=== PATIENT | male | born 1990 | race Caucasian/White ===

== ENCOUNTER → 2017-02-25 | Outpatient (CLI) | payer OTHER ==
[~2017-02-25] MED LIST: AMPH20TA2 PO; BENZ1CAP90 PO; BSP/10 PO; BUPR100T5 PO; BUPR100T8 PO; BUSP-8 PO; HYDR-5688 PO; IBUP-1050 PO; NICO21DI4 TD; PENI500T2 PO; PRED20TA2 PO; PSEU30TA20 PO; TRAZ100T29 PO
== END | disposition home or self-care (01) ==
LOC: C.LAB 20:19
DX: Z02.83 Encounter for blood-alcohol and blood-drug test (principal)

== ENCOUNTER 2017-05-04 10:45 | Emergency (ER) | payer SELFPAY ==
[~2017-05-04] VITALS: Ht 180.3 cm; Wt 77.3 kg
[~2017-05-04 10:45] MED LIST changes: -AMPH20TA2 PO; -BENZ1CAP90 PO; -BUPR100T8 PO; -BUSP-8 PO; -HYDR-5688 PO; -NICO21DI4 TD; -PENI500T2 PO; -PRED20TA2 PO
[2017-05-04 11:00] VITALS: TEMP 36.5; Ht 180.3 cm; Wt 77.3 kg
[2017-05-04] MEDS ORDERED: HYDR-5688 PO (11:48)
[2017-05-04] MEDS ORDERED: PENI500T2 PO (11:48)
[2017-05-04 11:50] VITALS: BP 122/74; PULSE 64; O2SAT 100
--- NOTE | 2017-05-04 20:28 | EMERGENCY ROOM VISIT NOTE ---
ED Visit Note First contact with patient: 11:40 CHIEF COMPLAINT: Dental pain.. HISTORY OF PRESENT ILLNESS: Mr. Zacarias is a 26-year-old white male who ambulates into the ED complaining of left mandibular dental pain. He reports 4 days ago he was chewing food and broke a portion of tooth #19. Since that time he has had progressive dental pain for hours over the left mandible that is radiating into towards the left ear. He describes the discomfort as a constant deep achy sensation with occasional episode of sharp discomfort primarily with palpation and chewing. He rates his discomfort 8/10. He reports he has been taking ibuprofen which initially was helping his discomfort but he has had no relief in the last 24 hours. He denies any associated symptoms including fevers, chills, sweats, skin eruptions, skin color changes, facial swelling/redness, difficulty swallowing, hearing changes, year drainage, headache. REVIEW OF SYSTEMS: As noted above in History of Present Illness. 8 body systems were reviewed with this patient and found to be negative unless noted above otherwise. PMH: Patient denies.. CURRENT MEDICATION: Buspirone, ibuprofen and pseudoephedrine. ALLERGIES TO MEDICATION: Patient denies. SOCIAL HISTORY: Patient is currently employed; he feels safe in his home environment; he admits to tobacco use and denies alcohol use. PHYSICAL EXAM: Vital Signs: Date Time Temp Pulse Resp B/P (MAP) Pulse Ox O2 Delivery O2 Flow Rate FiO2 05/04/17 11:50 64 16 122/74 100 05/04/17 11:00 36.5 64 20 124/80 99 Room Air General: 26 year-old white male in moderate distress due to pain, nontoxic appearing, afebrile and hemodynamically stable. Neurological: Awake, alert and oriented to person, place and time. Answering questions appropriately and following commands. Normal gait. Good hand eye coordination. No focal motor or sensory deficits. Skin: Warm, dry and pink. No soft tissue lesions, rashes, or trauma noted. HEENT: Atraumatic and normocephalic. No focal swelling or erythema. Airway is patent. Patient has multiple decaying teeth. Tooth #19 shows a fracture and absence of the anterior quarter portion of the buccal of the tooth. There is exposure of the inner portion of the tooth which once again is decayed was not appreciate any dentine or nerve exposure. Over the local gingiva there is mild erythema and mild edema. I do not appreciate any palpable abscesses. There is no local lymphadenopathy. Additionally the airway was patent and there was no posterior pharyngeal erythema or edema. ED COURSE: Patient is assessed as noted above. Patient is educated about his findings and instructed on his treatment plan; he verbalizes understanding and agreement with this plan. CLINIC IMPRESSION: Dental pain. Fracture tooth #19. DISPOSITION: Patient discharged home in stable condition; prior to departure he was reassessed and subjectively reported he was feeling better. PLAN: Comfort measures were discussed including a sliding pain scale of ibuprofen, acetaminophen and [place]. State database was checked and no red flags were observed. He was given the standard precautions for narcotic use. Additionally patient was encouraged to keep the area covered with dental wax and to avoid tobacco use and uses a mechanical soft diet. Patient was prescribed Pen-Vee K and instructed on its use. Patient was encouraged to keep his upcoming appointment with dentistry for definitive care and treatment. Patient was encouraged to return the ED for fevers, chills, sweats, facial swelling, uncontrolled pain or any new/concerning symptoms.
[2017-08-11] MEDS ORDERED: BUPR100T8 PO (09:06)
[2017-08-11] MEDS ORDERED: NICO21DI4 TD (09:06)
[2017-08-11] MEDS ORDERED: BUSP-8 PO (09:06)
== END 2017-05-04 11:50 | disposition home or self-care (01) ==
LOC: C.EDB 10:46 → C.EDD 11:50
DX: K08.89 Other specified disorders of teeth and supporting structures (principal); S02.5XXA Fracture of tooth (traumatic), initial encounter for closed fracture; W22.8XXA Striking against or struck by other objects, initial encounter; Y93.89 Activity, other specified; Y99.8 Other external cause status; Z72.0 Tobacco use

== ENCOUNTER 2017-06-28 20:43 | Emergency (ER) | payer OTHER ==
[~2017-06-28] VITALS: Ht 180.3 cm; Wt 73.0 kg
[~2017-06-28 20:43] MED LIST changes: +HYDR-5688 PO; -TRAZ100T29 PO
[2017-06-28 20:45] VITALS: Ht 180.3 cm; Wt 73.0 kg
[2017-06-28] MEDS ORDERED: ONDANSETRON INJ 2 MG/ML 2 ML VIAL IV STA (20:56)
[2017-06-28] MEDS ORDERED: FENTANYL CITRATE INJ 50 MCG/1 ML 2 ML VIAL IV STA (20:56)
[2017-06-28] MEDS ORDERED: SODIUM CHLORIDE 0.9% 1000ML 1,000 ML IV STA (20:56)
[2017-06-28] MEDS ORDERED: OPTIRAY 320 IV PRN (21:00)
[2017-06-28 21:17] LABS: BASO % 0.3 %; BASO ABS # 0.03 K/uL (0-0.2); COMPLETE YES; HEMATOCRIT 42.1 % (42-52); IG% 0.2 %; LYMPH % 23.7 %; LYMPH ABS # 2.24 K/uL (1.2-3.4); MEAN CELL VOLUME 81.7 fL (80-100); MEAN CORPUSCULAR HEMOGLOBIN 27.8 pg (25-34); MEAN PLATELET VOLUME 9.2 fL (7.4-10.4); NEUT % 66.8 %; PLATELET COUNT 220 K/uL (130-400); RED BLOOD COUNT 5.15 M/uL (4.7-6.1); WHITE BLOOD COUNT 9.47 K/uL (4.8-10.8)
[2017-06-28 21:26] LABS: ISTAT CREATININE 1.2 mg/dl (0.6-1.3); ISTAT HEMOGLOBIN 14.3 g/dl (14.0-18.0); ISTAT IONIZED CALCIUM 1.14 mmol/l (1.12-1.32)
[2017-06-28 21:39] LABS: BUN/CREATININE RATIO 12.7 (10-20); CALCIUM 8.5 mg/dl (8.5-10.1); CREATININE 1.3 mg/dl (0.60-1.40); POTASSIUM 3.3 mmol/L (3.5-5.1)
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
[2017-06-28 22:14] LABS: MANUAL MICROSCOPIC REQUIRED? NO; REVIEW REQ? NO; URINE APPEARANCE CLEAR (CLEAR); URINE BILIRUBIN NEG (NEG); URINE COLOR YELLOW; URINE NITRITE NEG (NEG); URINE PH 6.5 (4.5-7.5); URINE SPECIFIC GRAVITY 1.034 (1.000-1.030); UROBILINOGEN NEG (NEG); ZZUR CULT IF INDIC CLEAN CATCH NO
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
[2017-06-28 22:33] VITALS: BP 131/82; PULSE 63; TEMP 36.6; O2SAT 99
[2017-08-11] MEDS ORDERED: BUPR100T8 PO (09:06)
[2017-08-11] MEDS ORDERED: NICO21DI4 TD (09:06)
[2017-08-11] MEDS ORDERED: BUSP-8 PO (09:06)
== END 2017-06-28 22:34 | disposition home or self-care (01) ==
LOC: C.EDB 20:44 → C.EDA 22:34
DX: S09.90XA Unspecified injury of head, initial encounter (principal); R51 Headache; M54.2 Cervicalgia; R07.9 Chest pain, unspecified; V87.2XXA Person injured in collision between car and pick-up truck or van (traffic), initial encounter; Y92.410 Unspecified street and highway as the place of occurrence of the external cause; F17.210 Nicotine dependence, cigarettes, uncomplicated

== ENCOUNTER 2017-08-08 09:36 | Inpatient (IN) | payer OTHER ==
[~2017-08-08] VITALS: Ht 180.3 cm; Wt 68.9 kg
[2017-08-08] MEDS ORDERED: BUSP-8 PO (10:26)
[2017-08-08] MEDS ORDERED: BUPR100T8 PO (10:26)
[2017-08-08] MEDS ORDERED: AMPH20TA2 PO (10:26)
[2017-08-08 10:42] LABS: URINE APPEARANCE CLEAR (CLEAR); URINE BILIRUBIN NEG (NEG); URINE COLOR YELLOW; URINE NITRITE NEG (NEG); URINE PH 6.5 (4.5-7.5); URINE SPECIFIC GRAVITY 1.022 (1.000-1.030); UROBILINOGEN NEG (NEG)
[2017-08-08 10:43] LABS: MANUAL MICROSCOPIC REQUIRED? NO; REVIEW REQ? NO
[2017-08-08 11:04] LABS: BASO % 0.6 %; BASO ABS # 0.05 K/uL (0-0.2); COMPLETE YES; HEMATOCRIT 46.6 % (42-52); IG% 0.4 %; LYMPH % 31.3 %; LYMPH ABS # 2.45 K/uL (1.2-3.4); MEAN CELL VOLUME 79.8 fL (80-100); MEAN CORPUSCULAR HEMOGLOBIN 27.1 pg (25-34); MEAN CORPUSCULAR HGB CONC 33.9 g/dl (32-36); MEAN PLATELET VOLUME 9.3 fL (7.4-10.4); MONO % 7.5 %; NEUT % 59.2 %; PLATELET COUNT 229 K/uL (130-400); RED BLOOD COUNT 5.84 M/uL (4.7-6.1); WHITE BLOOD COUNT 7.84 K/uL (4.8-10.8)
[2017-08-08 11:29] LABS: BENZODIAZEPINE, URINE NEG (NEG); COCAINE,URINE NEG (NEG); PHENCYCLIDINE, URINE NEG (NEG)
[2017-08-08 11:30] LABS: BUN/CREATININE RATIO 16.8 (10-20); CALCIUM 8.7 mg/dl (8.5-10.1); CREATININE 1.1 mg/dl (0.60-1.40); POTASSIUM 3.6 mmol/L (3.5-5.1)
[2017-08-08 11:40] LABS: ALB/GLOB RATIO 1.3 (0.9-2); THYROID STIMULATING HORMONE 1.11 uIu/ml (0.300-4.500)
[2017-08-08] MEDS ORDERED: DIAZEPAM 5MG TAB PO ONE (11:45)
--- NOTE | 2017-08-08 14:04 | EMERGENCY ROOM VISIT NOTE ---
History Report prepared by Raheem: Jennifer Nicole Under the Supervision of: Dr. Caleb Parks M.D. First contact with patient: 09:49 Chief Complaint: MENTAL HEALTH EVALUATION Stated Complaint: THOUGHTS OF SUICIDAL History of Present Illness The patient is a 26 year old male who presents to the Emergency Room with complaints of persistent suicidal thoughts starting yesterday. The patient has a history of anxiety since he was younger. He has had multiple inpatient psychiatric hospitalizations previously. He changed his job a couple months ago and lost his insurance. He was no longer able to afford his medications. He was on Adderall, BuSpar, and Wellbutrin. He has not been able to take his medications for the past months. He has been self medicating with marijuana, but was recently told to stop by his police officer. For the past couple of days , he has been using alcohol. He has been drinking beer and some liquor. He states that he has had a 12 pack of beer. He has not used alcohol or other drugs since yesterday. Yesterday, he started having thoughts of harming himself. He does not have a plan. He has not tried harming himself in the past. He feels anxious and reports having heart palpitations, chills, SOB, and chest pain. He denies fever, cough, congestion, nausea, vomiting, back pain, abdominal pain, or diarrhea. He has not been hospitalized for alcohol withdrawal before. Source of History: patient Onset: yesterday Position: other (mental health) Quality: other (suicidal thoughts) Timing: other (persistent) Associated Symptoms: + chills, + chest pain, + SOB, No fevers, No cough, No nausea, No vomiting, No diarrhea Note: Pt anxiety, heart palpitations. Pt denies congestion. Review of Systems See HPI for pertinent positives and negatives. A total of ten systems were reviewed and were otherwise negative. Past Medical & Surgical Medical Problems: (1) Anxiety (2) Depression (3) Hemorrhoids Family History Diabetes mellitus Heart disease Hypertension Social History Smoking Status: Current Every Day Smoker Alcohol Use: occasionally Marital Status: in relationship Housing Status: lives with significant other Occupation Status: employed Current/Historical Medications Scheduled Amphetamine-Dextroamphetamine 20MG (Adderall 20MG), 20 MG PO BID Bupropion (Wellbutrin Sr), 100 MG PO BID Buspirone Hcl (Buspirone Hcl), 10 MG PO BID Allergies Coded Allergies: No Known Allergies (Unverified , 05/04/17) Physical Exam Vital Signs Date Time Temp Pulse Resp B/P (MAP) Pulse Ox O2 Delivery O2 Flow Rate FiO2 08/08/17 17:09 65 17 129/92 99 Room Air 08/08/17 11:30 68 20 120/89 97 Room Air 08/08/17 09:38 36.6 111 22 156/100 97 Room Air Physical Exam GENERAL: Awake, alert, appears tearful, in mild distress HENT: Normocephalic, atraumatic. Oropharynx unremarkable. EYES: Normal conjunctiva. Sclera non-icteric. NECK: Supple. No nuchal rigidity. FROM. No JVD. RESPIRATORY: Clear to auscultation. CARDIAC: Regular rate, normal rhythm. Extremities warm and well perfused. Pulses equal. ABDOMEN: Soft, non-distended. No tenderness to palpation. No rebound or guarding. No masses. RECTAL: Deferred. MUSCULOSKELETAL: Chest examination reveals no tenderness. The back is symmetrical on inspection without obvious abnormality. There is no CVA tenderness to palpation. No joint edema. LOWER EXTREMITIES: Calves are equal size bilaterally and non-tender. No edema. No discoloration. NEURO: Normal sensorium. No sensory or motor deficits noted. SKIN: No rash or jaundice noted. Medical Decision & Procedures Laboratory Results 08/08/17 10:45 Red Blood Count 5.84, Mean Corpuscular Volume 79.8, Mean Corpuscular Hemoglobin 27.1, Mean Corpuscular Hemoglobin Concent 33.9, Mean Platelet Volume 9.3, Neutrophils (%) (Auto) 59.2, Lymphocytes (%) (Auto) 31.3, Monocytes (%) (Auto) 7.5, Eosinophils (%) (Auto) 1.0, Basophils (%) (Auto) 0.6, Neutrophils # (Auto) 4.64, Lymphocytes # (Auto) 2.45, Monocytes # (Auto) 0.59, Eosinophils # (Auto) 0.08, Basophils # (Auto) 0.05 08/08/17 10:45 Test 08/08/17 09:47 08/08/17 10:45 08/08/17 10:47 Urine Color YELLOW Urine Appearance CLEAR (CLEAR) Urine pH 6.5 (4.5-7.5) Urine Specific [place] 1.022 (1.000-1.030) Urine Protein NEG (NEG) Urine Glucose (UA) NEG (NEG) Urine Ketones 1+ (NEG) Urine Occult Blood NEG (NEG) Urine Nitrite NEG (NEG) Urine Bilirubin NEG (NEG) Urine Urobilinogen NEG (NEG) Urine Leukocyte Esterase NEG (NEG) Urine Opiates Screen NEG (NEG) Urine Methadone, Qualitative NEG (NEG) Urine Barbiturates NEG (NEG) Urine Phencyclidine (PCP) Level NEG (NEG) Ur Amphetamine/Methamphetamine NEG (NEG) MDMA (Ecstasy) Screen NEG (NEG) Urine Benzodiazepines Screen NEG (NEG) Urine Cocaine Metabolite NEG (NEG) Urine Marijuana (THC) POS (NEG) White Blood Count 7.84 K/uL (4.8-10.8) Red Blood Count 5.84 M/uL (4.7-6.1) Hemoglobin 15.8 g/dL (14.0-18.0) Hematocrit 46.6 % (42-52) Mean Corpuscular Volume 79.8 fL (80-100) Mean Corpuscular Hemoglobin 27.1 pg (25-34) Mean Corpuscular Hemoglobin Concent 33.9 g/dl (32-36) Platelet Count 229 K/uL (130-400) Mean Platelet Volume 9.3 fL (7.4-10.4) Neutrophils (%) (Auto) 59.2 % Lymphocytes (%) (Auto) 31.3 % Monocytes (%) (Auto) 7.5 % Eosinophils (%) (Auto) 1.0 % Basophils (%) (Auto) 0.6 % Neutrophils # (Auto) 4.64 K/uL (1.4-6.5) Lymphocytes # (Auto) 2.45 K/uL (1.2-3.4) Monocytes # (Auto) 0.59 K/uL (0.11-0.59) Eosinophils # (Auto) 0.08 K/uL (0-0.5) Basophils # (Auto) 0.05 K/uL (0-0.2) RDW Standard Deviation 39.0 fL (36.4-46.3) RDW Coefficient of Variation 13.4 % (11.5-14.5) Immature Granulocyte % (Auto) 0.4 % Immature Granulocyte # (Auto) 0.03 K/uL (0.00-0.02) Anion Gap 8.0 mmol/L (3-11) Est Creatinine Clear Calc Drug Dose 98.3 ml/min Estimated GFR () 106.1 Estimated GFR (Non- 91.5 BUN/Creatinine Ratio 16.8 (10-20) Calcium Level 8.7 mg/dl (8.5-10.1) Total Bilirubin 0.5 mg/dl (0.2-1) Direct Bilirubin 0.2 mg/dl (0-0.2) Aspartate Amino Transf (AST/SGOT) 25 U/L (15-37) Alanine Aminotransferase (ALT/SGPT) 31 U/L (12-78) Alkaline Phosphatase 92 U/L (45-117) Total Protein 6.8 gm/dl (6.4-8.2) Albumin 3.8 gm/dl (3.4-5.0) Globulin 3.0 gm/dl (2.5-4.0) Albumin/Globulin Ratio 1.3 (0.9-2) Thyroid Stimulating Hormone (TSH) 1.110 uIu/ml (0.300-4.500) Ethyl Alcohol mg/dL < 3.0 mg/dl (0-3) Bedside Glucose 87 mg/dl (70-99) Laboratory results reviewed by me Medications Administered Medications (Trade) Dose Ordered Sig/[place] Route Start Time Stop Time Status Last Admin Dose Admin Diazepam (Valium Tab) 5 mg NOW ONCE PO 08/08/17 11:45 08/08/17 11:46 DC 08/08/17 11:51 5 MG Lorazepam (Ativan Tab) 1 mg ONE PRN PO 08/08/17 16:15 08/08/17 17:45 DC 08/08/17 17:45 1 MG ECG Indication: chest pain Rate (beats per minute): 74 Rhythm: normal sinus Findings: no acute ischemic change, other (normal intervals) ED Course 0958: The patient was evaluated in room A8. A complete history and physical exam was performed. 1145: Diazepam 5 mg PO. 1301: The patient has been medically cleared. Psych case consultant is arranging for referral to [address] [place] [address]. 1654: The patient has been accepted to [address] [place] [address] for further management. Medical Decision I reviewed the patient's past medical history, medications, and the nursing notes as described above. Differential diagnosis: anxiety, depression, suicidality, alcohol withdrawal. The patient is a 26-year-old gentleman with a past medical history of anxiety and depression as well as marijuana and alcohol abuse who presents to the ED with worsening anxiety and new suicidal ideation since yesterday in the setting of attempting to stop his marijuana abuse but instead started to drink more alcohol to the point that is causing problems with his home life where he lives with his partner and her child. Not any attempt at self-harm or any plan at this time. Patient appears significantly anxious to the point of an ability to function. Will check screening labs and requests mental health liaison to initiate evaluation for inpatient admission. Note patient reports she has been not taking his prescribed psych medications for 2 months . He would take Adderall,? Buspar secondary to losing his insurance as he transitioned from one job to another. He reports now he has been at his new Employer for sufficient time to receive health insurance. Labs unremarkable. Medically cleared and evaluated by psychiatric liaison who agrees with need for admission. [facility] placement pending. Medication Reconcilliation Current Medication List: was personally reviewed by me Blood Pressure Screening Patient's blood pressure: Normal blood pressure Blood pressure disposition: Did not require urgent referral Impression Primary Impression: Severe anxiety Additional Impression: Suicidal ideation Scribe Attestation The scribe's documentation has been prepared under my direction and personally reviewed by me in its entirety. I confirm that the note above accurately reflects all work, treatment, procedures, and medical decision making performed by me. Departure Information Dispostion Mental Health Acute Care Referrals No Doctor, Assigned (PCP) Patient Instructions [facility] Problem Qualifiers
[2017-08-08] MEDS ORDERED: GABAPENTIN 600 MG TAB PO SCH (16:15)
[2017-08-08] MEDS ORDERED: SODIUM CHLORIDE 0.65% NA SOLN 45 ML (OCEAN) PRN (16:15)
[2017-08-08] MEDS ORDERED: hydrOXYzine HCL 25 MG TAB PO PRN ×2 (16:15)
[2017-08-08] MEDS ORDERED: LORAZEPAM 1 MG TAB PO PRN (16:15)
[2017-08-08] MEDS ORDERED: ALUMINUM/MAGNESIUM SUSP 30 ML UDC PO PRN (16:15)
[2017-08-08] MEDS ORDERED: ACETAMINOPHEN 325 MG TAB PO PRN (16:15)
[2017-08-08] MEDS ORDERED: MAGNESIUM HYDROXIDE SUSP 30 ML UDC PO PRN (16:15)
[2017-08-08 17:09] VITALS: O2SAT 99
[2017-08-08] MEDS ORDERED: THIAMINE HCL 100 MG/ML 2 ML VIAL IM ONE (17:30)
[2017-08-08 17:42] VITALS: BP 155/83; PULSE 91; TEMP 36.6
[2017-08-08] MEDS ORDERED: GABAPENTIN 1200MG LOADING DOSE PO SCH (18:00)
[2017-08-08 18:23] VITALS: BP 155/83; PULSE 91; TEMP 36.6; Ht 180.3 cm; Wt 68.9 kg
[2017-08-08 20:53] VITALS: BP 119/83; PULSE 58; TEMP 36.8
[2017-08-08] MEDS: NICOTINE 21 MG/24 HR TDSY TD SCH (21:14)
[2017-08-08] MEDS: GABAPENTIN 600MG Q6H DOSE PO SCH (23:38)
[2017-08-09] MEDS: GABAPENTIN 600MG Q6H DOSE PO SCH (06:13)
[2017-08-09 06:38] VITALS: BP_SYST 117; BP_SYST 122; BP_DIAS 79; BP_DIAS 81; PULSE 73; PULSE 87; TEMP 36.8
[2017-08-09 09:38] VITALS: BP 127/76; PULSE 89; TEMP 36.7
[2017-08-09] MEDS: NICOTINE 21 MG/24 HR TDSY TD SCH (09:39)
[2017-08-09] MEDS ORDERED: BuPROPion SR 100 MG TABCR PO ONE (11:19)
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
[2017-08-09 12:16] VITALS: BP 117/80; PULSE 72; TEMP 36.6
[2017-08-09] MEDS: GABAPENTIN 600MG Q8H DOSE PO SCH ×2 (13:42→21:05)
[2017-08-09 16:06] VITALS: BP 139/100; PULSE 96; TEMP 36.3
[2017-08-09] MEDS: BuPROPion SR 100 MG TABCR PO SCH (17:09)
[2017-08-09 20:24] VITALS: BP 123/79; PULSE 78; TEMP 36.8
[2017-08-09] MEDS: BISMUTH SUBSALICYLATE PER ML OMNICELL CHARGE PO PRN (20:26)
[2017-08-10] MEDS: GABAPENTIN 600MG Q8H DOSE PO SCH (06:25)
[2017-08-10 06:48] VITALS: BP_SYST 127; BP_SYST 129; BP_DIAS 80; BP_DIAS 90; PULSE 64; PULSE 69; TEMP 36.5
[2017-08-10] MEDS: BuPROPion SR 100 MG TABCR PO SCH ×2 (08:00→17:02)
[2017-08-10] MEDS: NICOTINE 21 MG/24 HR TDSY TD SCH (08:00)
[2017-08-10 08:02] VITALS: BP 118/85; PULSE 69; TEMP 37
--- NOTE | 2017-08-10 09:55 | Psychiatric Progress Notes ---
Progress Note Date of Service Aug 10, 2017. Interval History Monico Zacarias is a 26-year-old male who currently lives in [place], has a history of depression, anxiety, ADHD, alcohol, cannabis, meth, and crack abuse, and presented to the emergency room on 08/08/2017 with suicidal thoughts in the context of noncompliance with medications due to inability to afford them, cannabis and alcohol abuse, and legal problems. He was admitted on a 201 voluntary commitment. Chief Complaint "Are you gonna tell me I'm going to halfway? Because I'm freaking out now". Subjective Patient was seen & assessed interval progress reviewed with Treatment Team. Staff report he is going to group and had a visit from his girlfriend and her daughter last evening. The patient had agreed to rehab and to sign an HERB for his PO yesterday at his initial evaluation, and then refused both when staff met with him. Today he states he is feeling much better, denies SI, and says he came into the hospital because "I was beatin' my old lady, wearin' her down." He blames this on "withdraws," saying he "had to get it out of my system." He says he "wants to get help," then says "I need to do this on my own." He says he doesn't want to sign an HERB for his PO because "it's my privacy, I don't want to tell her I been using drugs all month, I don't want to go to halfway." He says he doesn't want to go to rehab because "I got a life, I can't do no 30 days , someone needs to get my kid off the bus." He denies side effects to medications. He says he couldn't get sober on his own, "came home after drinking all night, puking in my car, got the suicidal thoughts." He just got off the phone with his girlfriend and says she is supportive of him getting outpatient substance abuse treatment. He says that he called several different outpatient substance abuse treatment facilities that his escrow officer provided him information on, and that none of them would accept him for treatment. He later says that he didn't have insurance, and they told him he would have to pay, which he was not willing to do. He gives multiple reasons why he no longer wants to go to rehabilitation, stating that he and his girlfriend are behind on their rent, although he also admits that he has not been able to work due to his ongoing drug use and inability to pass a drug test. Sleep Information Total Hours of Sleep: 7.00 Meal Information Percent of Breakfast Consumed: 100 Percent of Lunch Consumed: 100 Percent of Dinner Consumed: 100 Mental Status Exam During interview pt is: alert and oriented, uncooperative (not truthful, gives conflicting reports) Appearance: appropriately dressed, disheveled, other (older than stated age) Eye contact is: fair Motor behavior is: steady gait & station, psychomotor agitation Speech: is pressured (interrupts and talks over others at times) Affect: irritable, anxious, other (incongruent with stated mood) Mood is: other ("much better") Thought process: concrete, other (irrational was circular reasoning) Thought content: reality based without delusions Suicidal thought are: denied Homicidal thoughts are: denied Hallucinations: denies auditory, denies visual Cognition: memory grossly intact, attention grossly intact, language grossly intact Intelligence estimated to be: below average Insight: impaired Judgement: impaired Impression 26 y/o male who lives in [place] with his girlfriend and her 8 y/o daughter , has a history of crack, meth, alcohol, and cannabis abuse, and presented with SI and a plan to wreck his car in the context of relationship discord and legal problems. Inpatient care indicated due to risk of suicide if discharged. On admission, resumed previously effective medications for mood and anxiety, avoid controlled substance that are addictive or abusable, and coordinate care with outpatient providers (Dr. Randle previously prescribing stimulants, which are contraindicated given his severe addiction issues). Primary recommendation at the time of discharge is for inpatient rehabilitation, which he initially agreed to, but then quickly changed his mind, so the meeting with the insurance claims representative from the [facility] for funding for substance abuse treatment has been canceled. He also initially agreed to sign release for his by mouth, stating that he had been court ordered to substance abuse treatment, so that we could coordinate with her, but then refused to sign it, stating that he didn't want her to be aware of his ongoing substance use as he feared he would go to halfway. He then submitted a 72 hour notice requesting to withdraw from treatment. He has a family meeting with his girlfriend whom he lives with scheduled for tomorrow. Plan (1) Depression 08/09 - Resume bupropion SR as patient states it was effective for mood, and may also help for ADHD. Start 100mg bid. Would also like to resume buspirone for anxiety, 10mg bid. Advised stimulants are contraindicated due to active substance abuse. Encouraged patient in unit groups and programming. Refer back to Dr. Randle for outpatient psychiatry, and refer for therapy and case management. 08/10 - Continue current meds. (2) Suicidal ideation Every 15 minute checks for safety. Encourage group attendance and participation , work on healthy coping skills, and discharge safety plan. Family meeting with girlfriend. 08/10 - meeting with GF tomorrow. Need to ensure she feels safe with him coming home. (3) Alcohol abuse The patient's AUDIT score suggests problematic drinking ([place] WHO). Brief intervention was offered and accepted. Intervention was greater than 5 min in length. Brief interventions include: 1. Assess Readiness to Quit, 2. Advise: Help Patient to Reduce or Abstain from Alcohol, 3. Agree: Set Specific, Feasible Goals, 4. Assist: Anticipate barriers, Problem-Solving Solutions. Social work to 5. Arrange: Referrals to appropriate treatment. Summary of intervention: The patient is in contemplation stage with regards to transtheoretical model of change. The patient is advised to decrease alcohol consumption due to depressant effects and risk of interactions with prescription medications. The patient will be provided with recovery materials to continue to education self on how to cope with their condition without drinking. AWSS protocol started on admission for alcohol withdrawal. Continue gabapentin taper, and lorazepam as needed for signs or symptoms of withdrawal. Recovery protocol. Educate patient about the risks of ongoing alcohol abuse and the recommendations for abstinence. Discussed recommendations for inpatient substance abuse treatment, which he is not sure he will agree to. Will need to coordinate care with PO. Get HERB for PO to coordinate care, as he states he has been mandated to treatment. Would not recommend he be prescribed controlled substances, including stimulants , due to the high risk of abuse/misuse/diversion/negative outcomes. Will coordinate care with outpatient psychiatrist, Dr. Randle, who was recently prescribing him Adderall. 08/10 - Is not scoring on AWSS, no symptoms of withdrawal, so discontinue AWSS. - patient now refusing inpatient substance abuse treatment, and was again advised of the reasons why this is being recommended and encouraged to reconsider, which she is unwilling to do. [facility] with [facility], who was coming to meet with him for funding for rehabilitation, has been canceled. - Patient has been given information on several different IOP programs locally, and was given the task of calling them today to determine if he can be seen there for outpatient substance abuse treatment. - Patient was again informed of the importance that he abstain completely from substance use, and the risks of continued abuse of substances, including worsening mood, physiologic dependence, health problems, worsening anxiety, further legal problems, and increased risk of suicide. - Dr. Randle's office contacted and informed of concerns re: patient's ongoing substance abuse and recommendations to avoid controlled substances. We will send records and arrange OP f/u. (4) Cannabis abuse Patient has been educated about the risks of ongoing substance abuse and the recommendations for abstinence. Refer for substance abuse treatment. Coordinate with PO, as patient states he has been court-ordered to treatment. Discharge / Aftercare Planning Psychiatrist: Name: Dr Randle Visit Code E&M Code: 83426 Inventory Assets Strengths: Willing for treatment, has housing Risk Factors Assessment Male: Yes : Yes /single/: No (has a girlfriend and lives with her) Higher / Fall in social status: No Health problems: No Mental Health Diagnoses: Yes Substance use disorders: Yes Previous attempt: No Previous psychiatric stay: Yes Hopelessness: Yes Smoker: Yes Protective Factors Assessment Cheondoism beliefs: Yes : No Responsible for young children: Yes (girlfriend 8-year-old daughter lives with them) Employed: Yes Stable relationships: Yes Supportive family: No Good rapport with provider: No Data Vital Signs Last 24 Hrs: Date Time Temp Pulse Resp B/P (MAP) Pulse Ox O2 Delivery O2 Flow Rate FiO2 08/10/17 08:02 37.0 69 16 118/85 08/10/17 06:48 36.5 64 16 127/80 69 129/90 08/09/17 20:24 36.8 78 18 123/79 08/09/17 16:06 36.3 96 18 139/100 08/09/17 12:16 36.6 72 16 117/80 08/09/17 09:38 36.7 89 18 127/76 Meds Administered Last 24 Hrs: Meds Administered (Past 24Hrs) Medications (Trade) Dose Ordered Sig/[place] Route Start Time Stop Time Status Last Admin Dose Admin Diazepam (Valium Tab) 5 mg NOW ONCE PO 08/08/17 11:45 08/08/17 11:46 DC 08/08/17 11:51 5 MG Bismuth Subsalicylate (Kaopectate Liqd) 15 ml PRN PRN PO 08/08/17 16:15 09/07/17 16:14 08/09/17 20:26 15 ML Thiamine HCl (Vitamin B-1 Inj) 100 mg ONE ONCE IM 08/08/17 17:30 08/08/17 17:31 DC 08/08/17 18:16 100 MG Lorazepam (Ativan Tab) 1 mg ONE PRN PO 08/08/17 16:15 08/08/17 17:45 DC 08/08/17 17:45 1 MG Gabapentin (Neurontin Tab) 1,200 mg TODAY@1800 PO 08/08/17 18:00 08/08/17 18:01 DC 08/08/17 18:25 1,200 MG Gabapentin (Neurontin Tab) 600 mg Q6H PO 08/09/17 00:00 08/09/17 06:01 DC 08/09/17 06:13 600 MG Gabapentin (Neurontin Tab) 600 mg Q8H PO 08/09/17 14:00 08/10/17 06:01 DC 08/10/17 06:25 600 MG Nicotine (Nicoderm Cq 21MG Patch) 1 patch QAM TD 08/08/17 20:45 09/07/17 20:44 08/10/17 08:00 1 PATCH Bupropion HCl (Wellbutrin-Sr Tab) 100 mg BID17 PO 08/09/17 17:00 09/08/17 16:59 08/10/17 08:00 100 MG Bupropion HCl (Wellbutrin-Sr Tab) 100 mg 1119 ONCE PO 08/09/17 11:19 08/09/17 11:22 DC 08/09/17 12:13 100 MG Buspirone HCl (Buspar Tab) 10 mg BID PO 08/09/17 22:00 09/08/17 21:59 08/10/17 08:00 10 MG Buspirone HCl (Buspar Tab) 10 mg 1119 ONCE PO 08/09/17 11:19 08/09/17 11:22 DC 08/09/17 12:14 10 MG
[2017-08-10] MEDS ORDERED: INFLUENZA VIRUS QUAD VACCINE 0.5 ML SYR IM. ONE (12:30)
[2017-08-10] MEDS ORDERED: INFLUENZA ADMINISTRATION CHARGE ONE (12:30)
[2017-08-10] MEDS: BISMUTH SUBSALICYLATE PER ML OMNICELL CHARGE PO PRN (14:29)
[2017-08-10] MEDS: GABAPENTIN 600MG Q12H DOSE PO SCH (17:33)
[2017-08-11] MEDS: GABAPENTIN 600MG Q12H DOSE PO SCH (06:32)
[2017-08-11 07:04] VITALS: BP_SYST 118; BP_SYST 127; BP_DIAS 77; BP_DIAS 79; PULSE 60; PULSE 93; TEMP 36.5
[2017-08-11 08:11] VITALS: BP 118/77; PULSE 60; PULSE 93; TEMP 36.5
[2017-08-11] MEDS: NICOTINE 21 MG/24 HR TDSY TD SCH (08:14)
[2017-08-11] MEDS: BuPROPion SR 100 MG TABCR PO SCH (08:14)
[2017-08-11] MEDS ORDERED: NICO21DI4 TD (09:06)
[2017-08-11] MEDS ORDERED: BUPR100T8 PO (09:06)
[2017-08-11] MEDS ORDERED: BUSP-8 PO (09:06)
--- NOTE | 2017-08-11 09:15 | Discharge Instructions ---
Discharge Information Report Includes Report will include the: Discharge Instructions & Summary Admission Admission Date / Time: Aug 08, 2017 at 17:20 Reason for Admission: Depression Discharge Discharge Diagnosis / Problem: Depression, polysubstance abuse (alcohol, cannabis, meth) Condition at Discharge: Good Discharge Goals Goal(s): Improve function, Improve disease control, Learn about illness, Therapeutic intervention, Specific goals (refer for substance abuse treatment) Activity Recommendations Activity Limitations: per Instructions/Follow-up section . Instructions / Follow-Up Instructions / Follow-Up . SPECIAL CARE INSTRUCTIONS: 1. Follow through with your scheduled aftercare appointments. If unable to keep an appointment, please call to reschedule. You have been referred to intensive outpatient treatment for substance abuse. If you are not able to maintain sobriety, you should pursue inpatient substance abuse treatment (rehab) . 2. Take your medication only as prescribed. Medication should not be changed or stopped without the approval of your doctor. In the event of worsening symptoms or concerns about side effects, contact your doctor immediately. 3. Utilize new healthy coping skills, anger management skills, and stress management skills learned during your hospitalization. Journal feelings and process them with a support person. Identify stressors or situations that may result in relapse, deterioration or inappropriate behaviors and develop a plan to deal with those issues. 4. If your coping skills are ineffective and you are in crisis, contact your outpatient providers for direction. If unable to reach your providers, please call the CAN HELP LINE AT or go to the closest Emergency Room. 5. You should not drink alcohol or take un-prescribed drugs, including prescription medications that are controlled substances, are addictive or abusable, and illicit drugs. 6. You have been provided with the Mental Health Advance Directives Pamphlet for your review. 7. You should follow up with a dentist for your cavity. AFTERCARE APPOINTMENTS: * Please call your insurance company prior to your scheduled appointment to confirm your aftercare providers are covered. Take your insurance information to your appointments. . Discharge / Aftercare Planning Primary Care Physician: Name: None Appointment Notes: Encourage you to work with your insurance carrier to get family doctor Psychiatrist: Name: Dr Randle Date of Appointment: Sep 09, 2017 Time of Appointment: 2:30pm Therapist: Name Of Therapist: [place]-Shereen Maza Date of Appointment: Aug 15, 2017 Time of Appointment: 12:00 noon Appointment Comments: [address] [place] [id number] . Follow-Up Care Plan for Follow-Up Care: See above. Current Hospital Diet Patient's current hospital diet: Regular Diet Discharge Diet Recommended Diet: Regular Diet Procedures Procedures Performed: No Pending Studies Pending Studies at Discharge: No Medical Emergencies . Who to Call and When: Medical Emergencies: For questions or emergencies related to your hospital stay, please contact the Inpatient Behavioral Health Unit at [phone]. A pier worker is on-call 13/06 for the Behavioral Health Unit for emergencies At any time you feel your situation is an emergency, you may also call 911 immediately. . Non-Emergent Contact Non-Emergency issues call your: Psychiatrist, Therapist Past History Medical & Surgical History: (1) Methamphetamine abuse (2) Cannabis abuse (3) Alcohol abuse (4) Pain, dental Advance Directives Existing Advance Directive: No Do You Have an Existing Mental: No Existing Living Will: No Existing Power of Ruling Machine Set Up Operator: No Advance Directives Info Given: To Pt/S.O. Advance Directives Reason: Declines as Mental Health Visit. Discharge Summary Admission HPI Per the Admitting provider: This is the patient's first admission to our behavioral health unit. He presented to the emergency room yesterday after he drove himself in, and reported worsening mood and suicidal thoughts in the context of a fight with his girlfriend, substance abuse, and legal problems. Today the patient states he went "out all night drinking, didn't come home, didn't call," which caused a fight with his girlfriend, who he lives with. He admits his drinking has caused "a lot of fights" with her, and that he has been drinking and smoking pot daily for the past year, which has resulted in criminal charges and an inability to work recently, as he cannot pass a drug test. When he came home yesterday morning, they got into an argument, and "she blew up, didn't know where I was at , was just cuttin' me down, just mentally abusive really bad." He says "I thought I was a useless person," and admits to SI for the past few days prior to presentation, with hopelessness, worthlessness, and thoughts to wreck his car. He says he didn't act because "I don't have the balls to do it." He says he was diagnosed with ADHD in kindergarten, was on Ritalin for years "until I got immune to it in 8th grade," then tried many other stimulants. He had been in treatment with Dr. Randle for about a year, who was prescribing him buspirone , bupropion, and Adderall which she thought were helpful, but had been off the medications for a few months as he could not afford them, and had not seen his doctor in about 2 months. He recently been incarcerated for 17 days due to a DUI and resisting arrest, and says his press officer told him he had to stop abusing illicit drugs. He admitted to smoking marijuana daily since age 10 , and drinking 12 beers a day for the past year. He also admitted to using meth several months ago. He has not been able to work, as he is unable to pass the drug test. He endorsed low mood, decreased appetite, disrupted sleep, crying spells, emotional outbursts, and suicidal thoughts with a plan to wreck his car. He also endorsed daily anxiety, and says he smokes marijuana "to calm me down." He admits it is not cheaper than medications, says he is spending $50 every 2-3 days for marijuana, and says "it really helps." He says he "goes off" multiple times a week in the context of arguments with his girlfriend, but denies being physically aggressive recently. He says earlier in his 20's he "liked to break things" when angry, but denies that recently. He denies ever hitting his girlfriend. Denied panic symptoms, hallucinations, and manic symptoms. He was arrested in March for DUI and resisting arrest, and says he was given 1 month to "get clean, but I couldn't do it." He initially states that he was "totally honest" with his aerospace engineer officer armament, and that she is aware that he is here in getting treatment, but when informed that we would like to involve her in treatment, states he wants to call her and talk to her first, as he is worried "she'll get mad at me. Admission Exam Per the Admitting provider: Please see admission H&P. Hospital Course (1) Depression 08/09 - Resume bupropion SR as patient states it was effective for mood, and may also help for ADHD. Start 100mg bid. Would also like to resume buspirone for anxiety, 10mg bid. Advised stimulants are contraindicated due to active substance abuse. Encouraged patient in unit groups and programming. Refer back to Dr. Randle for outpatient psychiatry, and refer for therapy and case management. 08/10 - Continue current meds. 08/11 - Family meeting held with girldunia, who is supportive of discharge today and denies safety concerns in taking the patient home. Follow-up has been scheduled with Dr. Randle for 07/10/2017. The patient was provided with prescriptions for 1 month's worth of medications. (2) Suicidal ideation Every 15 minute checks for safety. Encourage group attendance and participation , work on healthy coping skills, and discharge safety plan. Family meeting with girlfrienoriana. 08/10 - meeting with GF tomorrow. Need to ensure she feels safe with him coming home. 08/11 - patient consistently denying suicidality here, is able to review his safety plan, and he submitted a 72 hour notice requesting discharge. (3) Alcohol abuse The patient's AUDIT score suggests problematic drinking (Zone III WHO). Brief intervention was offered and accepted. Intervention was greater than 5 min in length. Brief interventions include: 1. Assess Readiness to Quit, 2. Advise: Help Patient to Reduce or Abstain from Alcohol, 3. Agree: Set Specific, Feasible Goals, 4. Assist: Anticipate barriers, Problem-Solving Solutions. Social work to 5. Arrange: Referrals to appropriate treatment. Summary of intervention: The patient is in contemplation stage with regards to transtheoretical model of change. The patient is advised to decrease alcohol consumption due to depressant effects and risk of interactions with prescription medications. The patient will be provided with recovery materials to continue to education self on how to cope with their condition without drinking. AWSS protocol started on admission for alcohol withdrawal. Continue gabapentin taper, and lorazepam as needed for signs or symptoms of withdrawal. Recovery protocol. Educate patient about the risks of ongoing alcohol abuse and the recommendations for abstinence. Discussed recommendations for inpatient substance abuse treatment, which he is not sure he will agree to. Will need to coordinate care with PO. Get HERB for PO to coordinate care, as he states he has been mandated to treatment. Would not recommend he be prescribed controlled substances, including stimulants , due to the high risk of abuse/misuse/diversion/negative outcomes. Will coordinate care with outpatient psychiatrist, Dr. Randle, who was recently prescribing him Adderall. 08/10 - Is not scoring on AWSS, no symptoms of withdrawal, so discontinue AWSS. - patient now refusing inpatient substance abuse treatment, and was again advised of the reasons why this is being recommended and encouraged to reconsider, which she is unwilling to do. Meeting with Brittni Stevens from [employer], who was coming to meet with him for funding for rehabilitation, has been canceled. - Patient has been given information on several different IOP programs locally, and was given the task of calling them today to determine if he can be seen there for outpatient substance abuse treatment. - Patient was again informed of the importance that he abstain completely from substance use, and the risks of continued abuse of substances, including worsening mood, physiologic dependence, health problems, worsening anxiety, further legal problems, and increased risk of suicide. - Dr. Randle's office contacted and informed of concerns re: patient's ongoing substance abuse and recommendations to avoid controlled substances. We will send records and arrange OP f/u. 08/11 - Patient referred to [facility] for intensive outpatient substance abuse treatment. His initial appointment is on 08/15/2017. (4) Cannabis abuse Patient has been educated about the risks of ongoing substance abuse and the recommendations for abstinence. Refer for substance abuse treatment. Coordinate with PO, as patient states he has been court-ordered to treatment. (5) Nicotine addiction Patient provided with a prescription for nicotine patch, and will follow-up with his outpatient substance abuse treatment provider regarding smoking cessation. (6) Methamphetamine abuse Patient has been advised of the risks of ongoing substance abuse, and the recommendations for abstinence. Follow-up with outpatient substance abuse treatment. Risk Factors Assessment Male: Yes : Yes /single/: No (has a girlfriend and lives with her) Higher / Fall in social status: No Health problems: No Mental Health Diagnoses: Yes Substance use disorders: Yes Previous attempt: No Previous psychiatric stay: Yes Hopelessness: Yes Smoker: Yes Protective Factors Assessment Yazidi beliefs: Yes : No Responsible for young children: Yes (girlfriend 8-year-old daughter lives with them) Employed: Yes Stable relationships: Yes Supportive family: No Good rapport with provider: No Absence of risk factors above: Yes (risk factors were mitigated by admission to the inpatient unit, adjusting medications to target mood and anxiety symptoms , removing medications that are addictive/abusable, coordinate care with his outpatient psychiatrist, educating him about the risks of ongoing substance abuse, use of recovery protocol, use of medications for withdrawal symptoms while in the hospital, involving him in groups and therapy on the unit, working on healthy coping skills and a discharge safety plan, and a family meeting with his girlfriend. It was recommended that he go to inpatient substance abuse treatment, which she refused. It was also recommended that he allow communication with his aerospace engineer officer armament, which he also refused. He was willing to follow-up with outpatient substance abuse treatment and was [facility], and care was coordinated with his outpatient psychiatrist and follow-up appointment scheduled. He is consistently denied suicidality here, is able to review his safety plan, and is requesting discharge. He submitted a 72 hour notice. His girlfriend is also in support of discharge today. He is no longer at acute risk of harm to himself or others, so can be managed as an outpatient at this time.) Day of Discharge Assessment Hospital course: On admission, the patient requested to be restarted on previously effective medications, including bupropion SR and buspirone. He was not restarted on Adderall, due to severe substance abuse and the risk of abuse of the medication. He was educated about the risks of ongoing substance abuse and the recommendations for inpatient rehabilitation, which he initially agreed to, as well as the recommendation to coordinate care with his aerospace engineer officer armament, as he stated that he had been court ordered to attend substance abuse treatment. When staff then approached him to sign releases for his PO and for rehabilitation referrals, he refused to sign them. A meeting had been set up with [facility] to assess him for funding for rehabilitation, and this was canceled as he was refusing to go. He initially stated that he had been "completely honest" with his PO and that she knew he was still using, but then said that he did not want his PO to find out he was still using drugs, as he would go to [facility]. He commented that "it's her (his PO' s) own fault if she doesn't aspirate questions." He tolerated the medications well. He was on AWSS protocol for alcohol withdrawal, and did not score or require when necessary Ativan, but did receive the gabapentin taper. He attended and participated in groups, and consistently denied suicidal thoughts throughout his stay. He was able to work on healthy coping skills and a discharge safety plan. He had a family meeting with his girlfriend on the day of discharge. He ultimately agreed to outpatient substance abuse treatment, and was referred [facility]. He demonstrated good sleep and appetite on the unit, and attended to his ADLs independently. Day of discharge assessment: Patient had a family meeting with his girlfriend this morning, and she was supportive of discharge today. He has submitted a 72 hour notice and feels he no longer needs to be in the hospital. He continues to deny suicidal thoughts, and states he was only suicidal because he had been out partying, has gotten into a fight with his girlfriend, and feared that he was going to have to go to [facility] due to violating his parole. He denies side effects to medications, and is willing to follow-up with outpatient substance abuse treatment and his psychiatrist. White male appearing stated age. Casually dressed and adequately groomed. Calm and cooperative. Seated in NAD, with fair eye contact and no abnormal movements. Speech is normal rate, volume, and tone. Mood is "good," and affect is stable and congruent. Thoughts are goal directed. The patient denied suicidal and homicidal ideation and was able to safety plan. No paranoia , delusions, or hallucinations, and did not appear to be responding to internal stimuli. Cognition was grossly intact. Alert and oriented to person, place and time. Intelligence is consistent with level of education. Insight and and judgment are fair. Laboratory Test 08/08/17 09:47 08/08/17 10:45 08/08/17 10:47 Urine Color YELLOW Urine Appearance CLEAR Urine pH 6.5 Urine Specific [place] 1.022 Urine Protein NEG Urine Glucose (UA) NEG Urine Ketones 1+ Urine Occult Blood NEG Urine Nitrite NEG Urine Bilirubin NEG Urine Urobilinogen NEG Urine Leukocyte Esterase NEG Urine Opiates Screen NEG Urine Methadone, Qualitative NEG Urine Barbiturates NEG Urine Phencyclidine (PCP) Level NEG Ur Amphetamine/Methamphetamine NEG MDMA (Ecstasy) Screen NEG Urine Benzodiazepines Screen NEG Urine Cocaine Metabolite NEG Urine Marijuana (THC) POS Urine Marijuana (THC Carboxy Acid) 196 White Blood Count 7.84 Red Blood Count 5.84 Hemoglobin 15.8 Hematocrit 46.6 Mean Corpuscular Volume 79.8 Mean Corpuscular Hemoglobin 27.1 Mean Corpuscular Hemoglobin Concent 33.9 Platelet Count 229 Mean Platelet Volume 9.3 Neutrophils (%) (Auto) 59.2 Lymphocytes (%) (Auto) 31.3 Monocytes (%) (Auto) 7.5 Eosinophils (%) (Auto) 1.0 Basophils (%) (Auto) 0.6 Neutrophils # (Auto) 4.64 Lymphocytes # (Auto) 2.45 Monocytes # (Auto) 0.59 Eosinophils # (Auto) 0.08 Basophils # (Auto) 0.05 RDW Standard Deviation 39.0 RDW Coefficient of Variation 13.4 Immature Granulocyte % (Auto) 0.4 Immature Granulocyte # (Auto) 0.03 Sodium Level 137 Potassium Level 3.6 Chloride Level 104 Carbon Dioxide Level 25 Anion Gap 8.0 Blood Urea Nitrogen 19 Creatinine 1.10 Est Creatinine Clear Calc Drug Dose 98.3 Estimated GFR () 106.1 Estimated GFR (Non- 91.5 BUN/Creatinine Ratio 16.8 Random Glucose 83 Calcium Level 8.7 Total Bilirubin 0.5 Direct Bilirubin 0.2 Aspartate Amino Transferase (AST) 25 Alanine Aminotransferase (ALT) 31 Alkaline Phosphatase 92 Total Protein 6.8 Albumin 3.8 Globulin 3.0 Albumin/Globulin Ratio 1.3 Thyroid Stimulating Hormone (TSH) 1.110 Ethyl Alcohol mg/dL < 3.0 POC Glucose 87 Total Time Total Time Spent (min): Greater than 30 minutes Total Time Included: examination of the patient, discharge planning, medication reconciliation Tobacco Cessation at Discharge Smoking Status: Current Every Day Smoker FDA approved Prescription: nicotine replacement product
[2017-08-12] MEDS ORDERED: GABAPENTIN 600MG X1 DOSE PO SCH (06:00)
== END 2017-08-11 09:22 | disposition home or self-care (01) | DRG 881 ==
LOC: C.EDB 09:37 → ENRESERV 17:02 → EDBEDREQ 17:06 → C.MHU 17:20
PROVIDERS: ADMIT Psychiatry & Neurology Psychiatry; ATTEND Psychiatry & Neurology Psychiatry
DX: F32.9 Major depressive disorder, single episode, unspecified (principal); R45.851 Suicidal ideations; F90.9 Attention-deficit hyperactivity disorder, unspecified type; F10.10 Alcohol abuse, uncomplicated; F12.10 Cannabis abuse, uncomplicated; Z79.899 Other long term (current) drug therapy; F17.200 Nicotine dependence, unspecified, uncomplicated

== ENCOUNTER 2017-12-24 14:47 | Emergency (ER) | payer OTHER ==
[~2017-12-24] VITALS: Ht 180.3 cm; Wt 73.0 kg
[~2017-12-24 14:47] MED LIST changes: -BSP/10 PO; -BUPR100T5 PO; +BUPR100T8 PO; +BUSP-8 PO; -HYDR-5688 PO; -IBUP-1050 PO; +NICO21DI4 TD; -PSEU30TA20 PO
[2017-12-24 14:50] VITALS: TEMP 36.8; Ht 180.3 cm; Wt 73.0 kg
[2017-12-24] MEDS ORDERED: DEXT1LIQ36 PO (15:09)
[2017-12-24] MEDS ORDERED: PHEN-582 PO (15:09)
[2017-12-24] MEDS ORDERED: KETOROLAC TROMETHAMINE 30 MG/ML VIAL IV STA (15:09)
[2017-12-24] MEDS ORDERED: IBUP-1050 PO (15:09)
[2017-12-24] MEDS ORDERED: SODIUM CHLORIDE 0.9% 1000ML 1,000 ML IV STA (15:09)
[2017-12-24 15:33] LABS: BASO % 0.2 %; BASO ABS # 0.02 K/uL (0-0.2); EOS % 3.2 %; EOS ABS # 0.27 K/uL (0-0.5); HEMOGLOBIN 16.1 g/dL (14.0-18.0); IG# 0.08 K/uL (0.00-0.02); LYMPH % 31.6 %; LYMPH ABS # 2.69 K/uL (1.2-3.4); MEAN CELL VOLUME 83.5 fL (80-100); MEAN CORPUSCULAR HGB CONC 33.5 g/dl (32-36); MEAN PLATELET VOLUME 9.4 fL (7.4-10.4); MONO % 12.2 %; MONO ABS # 1.04 K/uL (0.11-0.59); NEUT % 51.9 %; NEUT ABS # 4.42 K/uL (1.4-6.5); PLATELET COUNT 354 K/uL (130-400); RED CELL DISTRIBUTION WIDTH CV 13.3 % (11.5-14.5); WHITE BLOOD COUNT 8.52 K/uL (4.8-10.8)
[2017-12-24 15:51] LABS: ALBUMIN 2.8 gm/dl (3.4-5.0); CALCIUM 8.5 mg/dl (8.5-10.1); CREATININE 1.14 mg/dl (0.60-1.40); POTASSIUM 4.1 mmol/L (3.5-5.1)
[2017-12-24 15:54] LABS: TOTAL PROTEIN 6.5 gm/dl (6.4-8.2)
[2017-12-24 16:41] LABS: INFLUENZA B ANTIGEN Neg for Influ B (NEG)
[2017-12-24] MEDS ORDERED: AZIT-60 PO (17:25)
[2017-12-24] MEDS ORDERED: AZITHROMYCIN 250 MG TAB PO STA (17:26)
[2017-12-24] MEDS ORDERED: ALBUTEROL HFA 8 GM INHALER INH STA (17:26)
--- NOTE | 2017-12-24 17:26 | EMERGENCY ROOM VISIT NOTE ---
History First contact with patient: 14:56 Chief Complaint: FLU LIKE SX Stated Complaint: COUGH,SORE THROAT,ACHEY,VAUGHN History of Present Illness The patient is a 26 year old male who presents to the Emergency Room via private vehicle accompanied by female with complaints of "sore throat, cough, achy, headache". The patient states that for the past 2 weeks now he has had body aches, sore throat, and a hoarse voice. He states that this has been progressing, and decided to get checked. He also notes a headache and rates it as a 2/10. He has been taking pypu-cre-gqpdhma medications without relief. He has been traveling a lot for work, and notes that this all began [place] [employer] [place] 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 Review of Systems A complete 6-point Review of Systems was discussed with the patient, with pertinent positives and negatives listed in the History of Present Illness. All remaining Review of Systems questions can be considered negative unless otherwise specified. Past Medical/Surgical History Medical Problems: (1) Anxiety (2) Cannabis abuse (3) Depression (4) Hemorrhoids (5) Methamphetamine abuse (6) Nicotine addiction Social History Problems: (1) Alcohol abuse Family History Diabetes mellitus Heart disease Hypertension Social History Smoking Status: Current Every Day Smoker Alcohol Use: occasionally Marital Status: in relationship Housing Status: lives with significant other Occupation Status: employed Current/Historical Medications Scheduled Azithromycin (Zithromax), 250 MG PO DAILY Puqvmojojmsei-Lp-Ye W/ Apap (Tylenol Cold & Flu Severe), 2 TABS PO prn ud Scheduled PRN Rsqzwdxazgemkafw-Erbghxakpj-Sg (Vicks Nyquil Cold & Flu), 1 DOSE PO Q6 PRN for FLU SYMPTOMS Ibuprofen (Advil), 600 MG PO Q6H PRN for FLU SYMPTOMS Physical Exam Vital Signs Date Time Temp Pulse Resp B/P (MAP) Pulse Ox O2 Delivery O2 Flow Rate FiO2 12/24/17 17:39 99 18 138/99 99 12/24/17 16:37 77 20 131/71 99 Room Air 12/24/17 14:50 36.8 87 18 113/73 98 Room Air Physical Exam VITAL SIGNS - Vital signs and nursing notes were reviewed. Stable. GENERAL - 26-year-old male appearing his stated age who is in no acute distress. Communicates well with provider and answers questions appropriately. SKIN - Without rashes. No petechial rashes. HEAD - NC/AT. EYES - PERRL with EOMI bilaterally. Sclera anicteric. EARS - No deformities of external structures noted on gross examination bilaterally. External auditory canals without discharge or otorrhea. Tympanic membranes pearly boyd without retraction or bulging. No fluid or purulent material visualized behind the TM. Handle of malleus, umbo, cone of light, pars tensa/flaccid all easily visualized. NOSE - Midline and without cyanosis. No epistaxis or purulent drainage noted. MOUTH/OROPHARYNX - Without perioral cyanosis. Buccal mucosa pink and moist and without leukoplakia. Tongue midline with equal elevation of palate bilaterally. No tonsillar hypertrophy, erythema, or exudates noted. Fair dentition noted. NECK - Neck with FROM. No nuchal rigidity. LUNGS - Chest wall symmetric without accessory muscle use, intercostals retractions, or central cyanosis. Normal vesicular breath sounds CTA B/L. No wheezes, rales, or rhonchi appreciated. CARDIAC - RRR with S1/S2. No murmur, rubs, or gallops appreciated. A Medical Decision & Procedures ER Provider Diagnostic Interpretation: CHEST ONE VIEW PORTABLE CLINICAL HISTORY: Cough. COMPARISON STUDY: Chest CT June 28, 2017 and chest radiograph August 27, 2016. FINDINGS: Lung volumes are normal. Lungs are clear. No pneumothorax or pleural effusion is present. Pulmonary vascularity is normal. Cardiac size is normal. Mediastinal contours are normal. IMPRESSION: No acute cardiopulmonary findings. Electronically signed by: Minh Cornejo M.D. 12/24/2017 5:30 PM Dictated Date/Time: 12/24/2017 5:29 PM Laboratory Results 12/24/17 15:25 Red Blood Count 5.75, Mean Corpuscular Volume 83.5, Mean Corpuscular Hemoglobin 28.0, Mean Corpuscular Hemoglobin Concent 33.5, Mean Platelet Volume 9.4, Neutrophils (%) (Auto) 51.9, Lymphocytes (%) (Auto) 31.6, Monocytes (%) (Auto) 12.2, Eosinophils (%) (Auto) 3.2, Basophils (%) (Auto) 0.2, Neutrophils # (Auto ) 4.42, Lymphocytes # (Auto) 2.69, Monocytes # (Auto) 1.04, Eosinophils # (Auto ) 0.27, Basophils # (Auto) 0.02 12/24/17 15:25 Test 12/24/17 15:25 12/24/17 16:00 White Blood Count 8.52 K/uL (4.8-10.8) Red Blood Count 5.75 M/uL (4.7-6.1) Hemoglobin 16.1 g/dL (14.0-18.0) Hematocrit 48.0 % (42-52) Mean Corpuscular Volume 83.5 fL (80-100) Mean Corpuscular Hemoglobin 28.0 pg (25-34) Mean Corpuscular Hemoglobin Concent 33.5 g/dl (32-36) Platelet Count 354 K/uL (130-400) Mean Platelet Volume 9.4 fL (7.4-10.4) Neutrophils (%) (Auto) 51.9 % Lymphocytes (%) (Auto) 31.6 % Monocytes (%) (Auto) 12.2 % Eosinophils (%) (Auto) 3.2 % Basophils (%) (Auto) 0.2 % Neutrophils # (Auto) 4.42 K/uL (1.4-6.5) Lymphocytes # (Auto) 2.69 K/uL (1.2-3.4) Monocytes # (Auto) 1.04 K/uL (0.11-0.59) Eosinophils # (Auto) 0.27 K/uL (0-0.5) Basophils # (Auto) 0.02 K/uL (0-0.2) RDW Standard Deviation 40.0 fL (36.4-46.3) RDW Coefficient of Variation 13.3 % (11.5-14.5) Immature Granulocyte % (Auto) 0.9 % Immature Granulocyte # (Auto) 0.08 K/uL (0.00-0.02) Anion Gap 4.0 mmol/L (3-11) Est Creatinine Clear Calc Drug Dose 100.5 ml/min Estimated GFR () 101.6 Estimated GFR (Non- 87.7 BUN/Creatinine Ratio 14.2 (10-20) Calcium Level 8.5 mg/dl (8.5-10.1) Total Bilirubin 0.1 mg/dl (0.2-1) Aspartate Amino Transf (AST/SGOT) 13 U/L (15-37) Alanine Aminotransferase (ALT/SGPT) 21 U/L (12-78) Alkaline Phosphatase 114 U/L (45-117) Total Protein 6.5 gm/dl (6.4-8.2) Albumin 2.8 gm/dl (3.4-5.0) Globulin 3.7 gm/dl (2.5-4.0) Albumin/Globulin Ratio 0.8 (0.9-2) Influenza Type A Antigen Neg for Influ A (NEG) Influenza Type B Antigen Neg for Influ B (NEG) Medications Administered Medications (Trade) Dose Ordered Sig/[place] Route Start Time Stop Time Status Last Admin Dose Admin Sodium Chloride 1,000 ml @ 999 mls/hr Q1H1M STAT IV 12/24/17 15:09 12/24/17 16:09 DC 12/24/17 15:59 999 MLS/HR Ketorolac Tromethamine (Toradol Inj) 30 mg NOW STAT IV 12/24/17 15:09 12/24/17 15:11 DC 12/24/17 16:00 30 MG Albuterol (Ventolin Hfa Inhaler) 2 puffs ONE STAT INH 12/24/17 17:26 12/24/17 17:28 DC 12/24/17 17:36 2 PUFFS Azithromycin (Zithromax Tab) 500 mg NOW STAT PO 12/24/17 17:26 12/24/17 17:28 DC 12/24/17 17:36 500 MG Medical Decision Patient was seen and evaluated as above. He presents to us today with upper respiratory tract symptoms. This has been going on for 2 weeks. He is nontoxic on exam. He was given Toradol and fluids. IV access was established. CBC reveals no concerning leukocytosis or anemia. Patient's bilirubin and AST were both low. Albumin low. He is negative for flu. Strep test negative. Chest x-ray negative. I suspect he likely experiencing a viral illness. All monocytes are elevated, his LFTs are normal. I do not suspect mono. The patient given his duration I believe warrants treated for bronchitis. This will be with albuterol inhaler, and I will add azithromycin given the 14 day course of his symptoms. He was given an abuser own inhaler here with [employer] as well as the first dose of azithromycin. He is to follow-up with his family doctor. He was educated upon management, educated upon worrisome symptoms in which to return, had questions answered prior to discharge, and was discharged home in good condition. In evaluation and treatment of this patient following differential diagnoses were entertained: Viral URI, pneumonia, mononucleosis, bronchitis, among others. Impression Primary Impression: Acute bronchitis Departure Information Dispostion Home / Self-Care Condition GOOD Prescriptions Azithromycin (ZITHROMAX) 250 Mg Tab 250 MG PO DAILY, #4 TAB Prov: Ignacio Lucas PA-C 12/24/17 Referrals Mariposa Kolb M.D. (PCP) Patient Instructions My [facility] Additional Instructions You were seen in the emergency department for your sore throat, cough and congestion. The results of your rapid strep screen were found to be NEGATIVE. You will be contacted in 48-72 hrs if the results of your culture are found to be positive and any change in antibiotics is necessary. You were prescribed Azithromycin to be taken every day for 5 days (first dose here) remainder at pharmacy to begin tomorrow evening. This is an antibiotic. All antibiotics have the potential to cause diarrhea. Stop this medication and contact a medical provider if you were to develop any significant adverse side effects including: wheezing, shortness of breath, passing out, vomiting, or a diffuse rash. Always take antibiotics as directed and COMPLETE the ENTIRE course regardless of the improvement of your symptoms. For the cough, i recommend the inhaler, 1-2 puffs every 6 hours. Please use regularly for 3 days. For pain and fever control, you can use the following wmoi-yqi-zidwqww medicines (if >12 yo): - Regular strength (325mg/tab) Tylenol (acetaminophen) 2 tabs every 4-6 hours as needed. Do not exceed 12 tablets in a 24 hour period. Avoid taking more than 3 grams (3000 mg) of Tylenol per day. This includes any other sources of acetaminophen you may take on a regular basis. - Regular strength (200 mg/tab) Advil (ibuprofen) 1-2 tabs every 4-6 hours as needed. Do not exceed a dose of 3200 mg per day. - For best results, alternate dosing of Tylenol and Advil. In addition to your prescribed medications, you can also use the following home remedies: - Warm salt-water gargles 3 times per day can soothe your throat and help to fight infection. - Warm tea with honey can soothe your throat. Return to the emergency department if your symptoms persist or worsen over the next 2-3 days despite treatment course outlined above. Return to the emergency department if you develop the following symptoms of: inability to swallow solids , liquids, or drool; excessive wheezing or inability to catch your breath; or intractable fever or pain. Follow up with your primary care provider in 2-3 days from today's emergency department visit.
--- NOTE | 2017-12-24 17:31 | DIAGNOSTIC IMAGING REPORT ---
CHEST ONE VIEW PORTABLE CLINICAL HISTORY: Cough. COMPARISON STUDY: Chest CT June 28, 2017 and chest radiograph August 27, 2016. FINDINGS: Lung volumes are normal. Lungs are clear. No pneumothorax or pleural effusion is present. Pulmonary vascularity is normal. Cardiac size is normal. Mediastinal contours are normal. IMPRESSION: No acute cardiopulmonary findings. Electronically signed by: Minh Cornejo M.D. 12/24/2017 5:30 PM Dictated Date/Time: 12/24/2017 5:29 PM
[2017-12-24 17:39] VITALS: BP 138/99; PULSE 99; O2SAT 99
== END 2017-12-24 17:40 | disposition home or self-care (01) ==
LOC: C.EDB 14:48
DX: J20.9 Acute bronchitis, unspecified (principal); F17.200 Nicotine dependence, unspecified, uncomplicated; Z83.3 Family history of diabetes mellitus; Z82.49 Family history of ischemic heart disease and other diseases of the circulatory system

== ENCOUNTER → 2018-03-29 | Outpatient (CLI) | payer OTHER ==
[~2018-03-29] MED LIST changes: -BUPR100T8 PO; -BUSP-8 PO; +DEXT1LIQ36 PO; +IBUP-1050 PO; -NICO21DI4 TD; +PHEN-582 PO
== END | disposition home or self-care (01) ==
LOC: C.LABPVFM 17:09
PROVIDERS: ATTEND Family Medicine
DX: N34.2 Other urethritis (principal); R39.9 Unspecified symptoms and signs involving the genitourinary system

== ENCOUNTER → 2018-03-30 | Outpatient (CLI) | payer OTHER | END | disposition home or self-care (01) | LOC: C.LABPVFM 08:15 | PROVIDERS: ATTEND Family Medicine | DX: N34.2 Other urethritis (principal) ==

== ENCOUNTER 2018-06-20 08:11 | Emergency (ER) | payer OTHER ==
[~2018-06-20] VITALS: Ht 180.3 cm; Wt 70.9 kg
[2018-06-20 08:13] VITALS: TEMP 37.5; Ht 180.3 cm; Wt 70.9 kg
[2018-06-20] MEDS ORDERED: ONDANSETRON 4MG OD TAB PO STA (08:48)
--- NOTE | 2018-06-20 09:14 | DIAGNOSTIC IMAGING REPORT ---
CT SCAN OF THE BRAIN WITHOUT IV CONTRAST CLINICAL HISTORY: Head injury. COMPARISON STUDY: CT of the brain dated 06/28/2017. TECHNIQUE: Unenhanced axial CT scan of the brain is performed from the vertex to the skull base. A dose lowering technique was utilized adhering to the principles of ALARA. CT DOSE: 1487.92 mGy.cm FINDINGS: Brain parenchyma: The brain parenchyma is normal in appearance. There is no hemorrhage, mass effect, or evidence of acute territorial ischemia by CT criteria. Mckeon-white matter is preserved. No extra-axial fluid collection is seen. Ventricles, sulci, cisterns: Normal in configuration. Intracranial vasculature: The visualized intracranial vasculature at the skull base is normal in appearance. Calvarium: There is no depressed calvarial fracture. Soft tissues: There is right periorbital and frontal scalp contusion and laceration. Tiny radiodense foreign bodies are present within the right frontal scalp. Sinuses and mastoids: The visualized paranasal sinuses are clear. The mastoid air cells are underpneumatized. Orbits: The bony orbits are grossly intact. IMPRESSION: 1. No acute intracranial abnormality. 2. There is no depressed calvarial fracture. 3. Right frontal and periorbital scalp injury/laceration. Radiodense foreign bodies are seen in the frontal scalp. Electronically signed by: Hang Worley M.D. 06/20/2018 9:13 AM Dictated Date/Time: 06/20/2018 9:09 AM
--- NOTE | 2018-06-20 09:14 | DIAGNOSTIC IMAGING REPORT ---
CT OF THE CERVICAL SPINE CLINICAL HISTORY: Neck pain status post trauma. ] Accident. COMPARISON STUDY: June 28, 2017 CT DOSE: TECHNIQUE: CT scan of the cervical spine was performed from the skull base to the thoracic inlet. Images are reviewed in the axial, sagittal, and coronal planes. IV contrast was not administered for this examination. A dose lowering technique was utilized adhering to the principles of ALARA. FINDINGS: The visualized portions of the lung apices reveal no evidence of pneumothorax. The prevertebral soft tissues are normal. No fractures or subluxations are visualized. IMPRESSION: No evidence of acute fracture or traumatic subluxation. Electronically signed by: Los Nguyen M.D. 06/20/2018 9:13 AM Dictated Date/Time: 06/20/2018 9:10 AM
--- NOTE | 2018-06-20 09:30 | DIAGNOSTIC IMAGING REPORT ---
CT SCAN OF THE FACIAL BONES WITHOUT IV CONTRAST CLINICAL HISTORY: Right-sided facial injury. COMPARISON STUDY: CT of the brain performed concurrently on 06/20/2018. TECHNIQUE: High-resolution CT scan of the facial bones is performed. Images are reviewed in the axial, sagittal, and coronal planes. IV contrast was not administered for this examination. A dose lowering technique was utilized adhering to the principles of ALARA. FINDINGS: The skeletal structures are well mineralized. There is no evidence of facial bone fracture. The bony orbits are intact and the orbital contents are within normal limits. The zygomatic arches, nasal bones, and pterygoid plates are preserved. The maxilla and mandible are intact. There are no layering blood products within the paranasal sinuses. Trace mucosal thickening is seen within the frontal, ethmoid, sphenoid, and maxillary sinuses. The mastoid air cells are underpneumatized. The visualized calvarium and upper cervical spine are maintained. Partially imaged brain parenchyma is within normal limits. There are numerous dental caries identified. No periapical lucency is seen. There is right frontal and periorbital scalp contusion/hematoma with a right frontal scalp laceration. Numerous tiny radiodense foreign bodies are seen in the right frontal scalp. IMPRESSION: 1. There is no evidence of facial bone fracture. 2. Right frontal and periorbital scalp injury/laceration. Numerous tiny radiodense foreign bodies are seen in the right frontal scalp. 3. Numerous dental caries are identified. Nonemergent follow-up with dentistry is recommended. Electronically signed by: Hang Worley M.D. 06/20/2018 9:29 AM Dictated Date/Time: 06/20/2018 9:25 AM
--- NOTE | 2018-06-20 09:43 | DIAGNOSTIC IMAGING REPORT ---
R KNEE 3 VIEWS CLINICAL HISTORY: same pain COMPARISON: None. DISCUSSION: The bones and joint spaces appear intact. There is no evidence of fracture, dislocation or bony disease. There is no evidence for soft tissue swelling. IMPRESSION: Negative study. The above report was generated using voice recognition software. It may contain grammatical, syntax or spelling errors. Electronically signed by: Carlos Kemp M.D. 06/20/2018 9:42 AM Dictated Date/Time: 06/20/2018 9:41 AM
[2018-06-20] MEDS ORDERED: OXYCODONE/ACETAMINOPHEN 5-325 TAB PO STA (10:01)
[2018-06-20] MEDS ORDERED: CEPHALEXIN MONOHYDRATE 250 MG CAP PO ONE (10:30)
[2018-06-20] MEDS ORDERED: LIDOCAINE 1% BUFFERED INJ 20 ML VIAL INFIL ONE (10:30)
[2018-06-20] MEDS ORDERED: ONDANSETRON 4MG OD TAB ONE (11:26)
[2018-06-20] MEDS ORDERED: CEPH500C2 PO (12:36)
[2018-06-20] MEDS ORDERED: OXYC-737 PO (12:36)
[2018-06-20] MEDS ORDERED: DIPHTHERIA/TETANUS/PERTUSSIS 0.5 ML SYR/VIAL IM. ONE (12:45)
[2018-06-20 13:03] VITALS: BP 125/82; PULSE 91; O2SAT 100
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
== END 2018-06-20 13:04 | disposition home or self-care (01) ==
LOC: C.EDB 08:12 → C.EDA 13:04
DX: S01.02XA Laceration with foreign body of scalp, initial encounter (principal); S01.82XA Laceration with foreign body of other part of head, initial encounter; S30.810A Abrasion of lower back and pelvis, initial encounter; S80.819A Abrasion, unspecified lower leg, initial encounter; V28.0XXA Motorcycle driver injured in noncollision transport accident in nontraffic accident, initial encounter; F41.9 Anxiety disorder, unspecified; Z72.0 Tobacco use

== ENCOUNTER 2018-07-01 10:11 | Emergency (ER) | payer SELFPAY ==
[~2018-07-01] VITALS: Ht 180.3 cm; Wt 84.2 kg
[~2018-07-01 10:11] MED LIST changes: -DEXT1LIQ36 PO; -IBUP-1050 PO; +OXYC-737 PO; -PHEN-582 PO
[2018-07-01 10:12] VITALS: BP 132/83; PULSE 96; TEMP 36.7; O2SAT 99; Ht 180.3 cm; Wt 84.2 kg
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
== END 2018-07-01 12:05 | disposition left against medical advice (07) ==
LOC: C.EDB 10:12 → C.EDC 12:05
DX: S01.01XD Laceration without foreign body of scalp, subsequent encounter (principal); X58.XXXD Exposure to other specified factors, subsequent encounter